=== PATIENT | male | born 1965 | race Caucasian/White ===

== ENCOUNTER → 2023-10-07 18:30 | Outpatient (CLI) | payer OTHER, SELFPAY ==
--- NOTE | 2023-10-07 18:33 | DI.MRI.S_ITS ---
PROCEDURE: MR HAND RT WO CON INDICATIONS: NONDISPLACED FX OF PROXIMAL PHALANX OF RT THUMB TECHNIQUE: Noncontrast oblique coronal T1 spin echo and T2 fast spin echo with fat saturation, axial and sagittal T2 fast spin echo with fat saturation, through the thumb. COMPARISON: [facility] Outside Film, CR, XR HAND 3+ VIEWS RIGHT, 09/10/2023, 10:54. FINDINGS: Image quality: Excellent. 1st metacarpophalangeal joint: There is a minimally displaced small avulsion fracture at the ulnar base of the 1st proximal phalanx, with associated marrow edema of the fracture fragment and the base of the 1st proximal phalanx, representing acute etiology. There is marked marrow edema of the radial aspect of the 1st metacarpal head, without fracture line, representing marrow contusion. The radial collateral ligament is intact. There is full-thickness tear of the ulnar collateral ligament at the distal insertion at the 1st proximal phalangeal base. There is volar displacement of the distal and of the ulnar collateral ligament, concerning for Silvano lesion. Marked soft tissue edema about the thumb. Additional bone findings: There is diffuse marrow edema of the 1st proximal phalangeal head, without fracture line, representing marrow contusion. Chronic ulnar styloid fracture. Internal fixation of the distal radius, partially visualized. There is multi focal T2 hyperintensity within the carpal bones, and the distal ulna, which may be degenerative versus erosion in the setting of rheumatoid arthritis. Moderate degenerative changes of the 1st carpometacarpal joint. Additional soft tissue findings: The flexor, and extensor tendons are unremarkable. IMPRESSION: 1. Minimally displaced small avulsion fracture at the ulnar base of the 1st proximal phalanx. Marrow contusion of the radial aspect of 1st metacarpal head. 2. Full-thickness tear of the distal insertion of the ulnar collateral ligament at the 1st metacarpophalangeal joint, with Silvano lesion. 3. Marrow contusion of the 1st proximal phalangeal head. 4. Degenerative changes versus rheumatoid arthritis in the carpal bones and the distal ulna. 5. Moderate degenerative change of 1st carpometacarpal joint. Dictated by: Arianna Barr M.D. on 10/08/2023 at 12:38 Approved by: Arianna Barr M.D. on 10/08/2023 at 12:53
== END ==
LOC: MRI 18:32
PROVIDERS: PCP Nurse Practitioner Family; Referring Provider Orthopaedic Surgery; Visit Provider Orthopaedic Surgery
DX: S62.514A Nondisplaced fracture of proximal phalanx of right thumb, initial encounter for closed fracture (principal); S53.32XA Traumatic rupture of left ulnar collateral ligament, initial encounter; X58.XXXA Exposure to other specified factors, initial encounter
CPT/HCPCS: 73218